=== PATIENT | male | born 1945 | race Caucasian/White ===

== ENCOUNTER 2024-09-19 14:38 | Emergency (ER) | payer OTHER, MEDICARE ==
[~2024-09-19] VITALS: Ht 188 cm; Wt 131.5 kg
[2024-09-19 14:40] VITALS: TEMP 98.2
--- NOTE | 2024-09-19 14:54 | ERN ---
ED Note History of Present Illness Stated Complaint: DIZZINESS Chief Complaint: Dizzy/Light Headed Time Seen by MD: 14:40 Dictation: PATIENT IS A 78-YEAR-OLD MALE COMING IN TODAY WITH COMPLAINTS OF BEING HYPOTENSIVE AND MILDLY DIZZY FOR THE LAST SEVERAL DAYS. HE HAS NO CHEST PAIN NO BACK PAIN NO HEADACHE, NIH IS 0 AND HE IS NEUROLOGICALLY INTACT WITH GAIT STEADY. 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 ESPINOSA PATIENT DOES STATE HE HAS HAD BLACK STOOLS FOR SEVERAL DAYS HOWEVER HE STATES HE TAKES IROMN REPLACEMENT TABLETS DAILY Allergies: Coded Allergies: No Known Drug Allergies (Unverified Allergy, Unknown, 09/19/24) Past Medical History RN Note Reviewed/Agreed w/PFSH: Yes Review of System Dictation CONSTITUTIONAL: NEGATIVE EXCEPT FOR HPI HEAD/FACE: NEGATIVE EXCEPT FOR HPI EENT: NEGATIVE EXCEPT FOR HPI RESPIRATORY: NEGATIVE EXCEPT FOR HPI GASTROINTESTINAL/ABDOMINAL: NEGATIVE EXCEPT FOR HPI GENITOURINARY: NEGATIVE EXCEPT FOR HPI MUSCULOSKELETAL: NEGATIVE EXCEPT FOR HPI INTEGUMENTARY: NEGATIVE EXCEPT FOR HPI NEUROLOGICAL/PSYCH: NEGATIVE EXCEPT FOR HPI DIZZY HEMATOLOGIC/LYMPHATIC: NEGATIVE EXCEPT FOR HPI ALL SYSTEMS NEGATIVE, EXCEPT NOTED ABOVE. 13 POINT REVIEW OF SYSTEMS ASSESSED AND ALL NEGATIVE EXCEPT FOR ABOVE. Initial Vital Sign VS Vital Signs Date Time Temp Pulse Resp B/P (MAP) Pulse Ox O2 Delivery O2 Flow Rate FiO2 09/19/24 14:40 98.2 75 16 119/52 97 Room Air* 0 21 Physical Exam Dictation VITAL SIGNS REVIEWED NIH IS 0, ALERT AND ORIENTED X4 SPEECH IS CLEAR NORMOTENSIVE GENERAL APPEARANCE: ALERT, ORIENTED X 3, NO ACUTE DISTRESS, WELL DEVELOPED, NOURISHED. HEAD AND FACE: NON-TRAUMATIC. EYES: PERRL, PINK CONJUNCTIVAS, EYELID NO TRAUMA, ANTERIOR CHAMBER WITH ARCUS SENILIS. EARS: PINNAS INTACT AND NO SIGNS OF TRAUMA OR ERYTHEMA EAR CANALS CLEAR AND NO DISCHARGE TM NO ERYTHEMA NOSE: NO DISCHARGE, NO BLEEDING. OROPHARYNX: MOUTH NORMAL, TONGUE PINK, PHARYNX CLEAR,NO ERYTHEMA, TONSILS NO EXUDATES, NO ABSCESSES NOTED, MUCOUS MEMBRANE MOIST NECK: SUPPLE, NON-TENDER, NO THYROMEGALY, NO MASSES, NO JVD, NO BRUITS BREAST:DEFERRED CHEST:NO TENDERNESS, NO CREPITUS, NO PARADOXICAL MOVEMENT, NO RETRACTIONS LUNGS:CLEAR, WELL-VENTILATED, SYMMETRIC, NO RALES, NO WHEEZING, NO RHONCHI, NO STRIDOR, GOOD BREATH SOUNDS BILATERALLY HEART: REGULAR RATE, REGULAR RHYTHM, NO MURMUR, NO GALLOPS VASCULAR: NO PERIPHERAL EDEMA, ABDOMEN: SOFT, POSITIVE BOWEL SOUNDS, NONDISTENDED, NO GUARDING, NONTENDER, NO REBOUND, NO MASSES NO HEPATOMEGALY, NO SPLENOMEGALY, NO GUTIERREZ'S SIGN, NO HERNIAS. RECTAL: DEFERRED GENITAL: DEFERRED NEUROLOGICAL: NORMAL SPEECH, MOTOR FUNCTION INTACT, SENSORY FUNCTION INTACT MUSCULOSKELETAL: NECK NONTENDER, FULL RANGE OF MOTION, BACK NONTENDER, FULL RANGE OF MOTION, EXTREMITIES: NONTENDER, FULL RANGE OF MOTION SKIN: COLOR PINK, DRY, NO TURGOR, NO RASH, NO LACERATIONS, NO ABRASIONS, NO CONTUSIONS. LYMPHATIC: DEFERRED Results (Laboratory/Radiology) Laboratory/Radiology Laboratory Tests Test 09/19/24 15:16 09/19/24 15:25 White Blood Count 10.3 K/uL (4.8-10.8) Red Blood Count 4.77 MIL/uL (4.50-6.20) Hemoglobin 13.3 g/dL (14.0-18.0) L Hematocrit 40.7 % (42-54) L Mean Corpuscular Volume 85.3 fL (79-99) Mean Corpuscular Hemoglobin 27.9 pg (27.0-33.0) Mean Corpuscular Hemoglobin Concent 32.7 g/dL (32.0-36.0) Red Cell Distribution Width 16.7 % (11.0-15.5) H Platelet Count 127 K/uL (130-400) L Mean Platelet Volume 12.0 fL (7.5-10.5) H Immature Granulocyte % (Auto) 1.9 % (0-1) H Neutrophils (%) (Auto) 68.5 % (40.0-77.0) Lymphocytes (%) (Auto) 17.1 % (21.0-51.0) L Monocytes (%) (Auto) 7.3 % (3.0-13.0) Eosinophils (%) (Auto) 3.6 % (0.0-8.0) Basophils (%) (Auto) 1.6 % (0.0-5.0) Neutrophils # (Auto) 7.0 K/uL (1.8-7.7) Lymphocytes # (Auto) 1.8 K/uL (1.0-4.8) Monocytes # (Auto) 0.8 K/uL (0.1-1.0) Eosinophils # (Auto) 0.37 K/uL (0.00-0.70) Basophils # (Auto) 0.16 K/uL (0.00-0.20) Absolute Immature Granulocyte (auto 0.19 K/uL (0-1) Nucleated Red Blood Cells 0.0 % (0.0-0.19) Sodium Level 137 mmol/L (136-145) Potassium Level 4.6 mmol/L (3.5-5.1) Chloride Level 102 mmol/L (101-111) Carbon Dioxide Level 29 mmol/L (21-32) Blood Urea Nitrogen 28 mg/dL (7-18) H Creatinine 1.0 mg/dL (0.5-1.3) Glomerular Filtration Rate Calc 77 mL/min (>90) Random Glucose 108 mg/dL (70-105) H Total Calcium 9.7 mg/dL (8.5-10.1) Magnesium Level 2.20 mg/dL (1.80-2.40) Troponin I High Sensitivity 6 ng/L (4-75) Stool Occult Blood POSITIVE (NEGATIVE) H Labs Reviewed?: Yes EKG Comment: EKG NORMAL SINUS RHYTHM/HEART RATE 73/AXIS NORMAL/NO ECTOPY ED Course ED Course Orders Procedure Category Date Status Time Orthostatic Vital CPOE 09/19/24 Transmitted Signs 14:45 Cbc With Differential LAB 09/19/24 Complete 14:45 Chest 1vw RAD 09/19/24 Resulted 14:45 12 Lead Ekg Tracing- EKG 09/19/24 Logged Technical 14:45 Magnesium LAB 09/19/24 Complete 14:45 Troponin I High LAB 09/19/24 Complete Sensitivity 14:45 Basic Metabolic Panel LAB 09/19/24 Complete 14:45 Occult Blood Stool LAB 09/19/24 Complete Single Only 14:56 Pantoprazole 40mg Inj PHA 09/19/24 Complete (Protonix 40mg Inj 17:00 Current Medications Medications (Trade) Dose Ordered Sig/Zeeshan Route PRN Reason Start Time Stop Time Status Last Admin Dose Admin Pantoprazole Sodium (PROTonix 40MG INJ) 40 mg ONCE ONCE IVP 09/19/24 17:00 12/22/24 17:01 DC Vital Signs Date Time Temp Pulse Resp B/P (MAP) Pulse Ox O2 Delivery O2 Flow Rate FiO2 09/19/24 14:40 98.2 75 16 119/52 09/19/24 14:40 98.2 75 16 119/52 97 Room Air* 0 21 1455, ORTHOSTATIC BLOOD PRESSURE CHECKS DONE BY TECH LYING 135/61 HEART RATE 73 SITTING BLOOD PRESSURE 133/54/HEART RATE 73 STANDING BLOOD PRESSURE 132/54 HEART RATE 88 1645/DR MALKA BRADY/GI REGARDING POSITIVE STOOL OB, HE SAID OKAY TO DISCHARGE PATIENT HOME AND HE TOOK HIS HOME PHONE NUMBER SAID HE WILL CALL PATIENT TOMORROW FOR AN APPOINTMENT. 1705 SPOKE WITH PATIENT AT LENGTH REGARDING FINDINGS AND MY CONVERSATION WITH ANNOUNCER HE IS AWARE THERE WAS NO SIGNIFICANT FINDINGS OTHER THAN A SCHOOL FOR AN OCCULT BLOOD AND THIS BLACK STOOL IS NOT RELATED TO IRON SUPPLEMENTATION. HE WANTS TO GO HOME AND SAID HE WILL FOLLOW UP WITH OF GASTROENTEROLOGY IN THE NEXT 1-2 DAYS. Medical Decision Making MDM MDM: DIFFERENTIAL DIAGNOSIS: ACS/AMI/ORTHOSTASIS/ELECTROLYTE IMBALANCE/DEHYDRATION/GI BLEED/ANEMIA RATIONALE: TESTS CONSIDERED AND ORDERED SECONDARY TO SHARED DECISION MAKING INCLUDE: LABS/EKG PREVIOUS OUTSIDE RECORDS REVIEWED: OLD ER VISITS. REVIEWED RISK OF COMPLICATION AND/OR MORBIDITY OR MORTALITY OF PATIENT MANAGEMENT: NONE MEDICATIONS-PER MEDICATION RECONCILIATION SEE NURSE'S NOTES NEED FOR HOSPITALIZATION: PATIENT DOES NOT MEET CRITERIA FOR HOSPITALIZATION. NO NEED FOR EMERGENCY MAJOR/MINOR SURGERY: NO THERE ARE NO SOCIAL CONCERNS WITH THIS PATIENT. PRESCRIPTION DRUG MANAGEMENT PROTONIX PRESCRIPTIONS WILL INCLUDE SYMPTOMATIC CARE PATIENT'S PRIOR EXTERNAL MEDICAL RECORDS FROM OTHER ER VISITS WERE REVIEWED BY ME INDICATED. PRIOR TESTING AND RESULTS FROM PREVIOUS VISITS WERE REVIEWED. PRIOR TESTS WERE TAKEN INTO ACCOUNT WITH MEDICAL DECISION MAKING AND RESOURCE UTILIZATION, INDEPENDENT HISTORIAN/HISTORIANS WERE USED TO OBTAIN COMPLETE MEDICAL HISTORY. I INDEPENDENTLY INTERPRETED THE TEST THAT WERE PERFORMED, RESULTS WERE REVIEWED BY ME AND CONSIDERED FINDINGS ON RADIOLOGY IF ORDERED. MEDICAL MANAGEMENT AND EXAMINATION INTERPRETATION DISCUSSIONS WERE HAD BY ME WITH OTHER QUALIFIED HEALTHCARE PROFESSIONALS INDICATED FOR THE PATIENT'S CARE. DX & DISP Disposition: Discharge Departure Impression: Primary Impression: Dizziness Additional Impressions: Positive occult stool blood test, Dehydration Condition: Stable Scripts Pantoprazole Sodium (Protonix) 40 Mg Tablet. 1 TAB PO DAILY for 30 Days, #30 TAB 0 Refills Prov: JUSTICE GAN FAST [employer]W LEAD 09/19/24 Additional Instructions: FOLLOW-UP WITH PRIMARY CARE PROVIDER IN 1 TO 2 DAYS. TAKE MEDICATIONS DIRECTED HERE IN THE EMERGENCY ROOM. OKAY TO CONTINUE HOME MEDICATIONS UNLESS OTHERWISE DISCUSSED DURING YOUR VISIT IN THE EMERGENCY ROOM TODAY. RETURN TO YOUR NEAREST EMERGENCY ROOM IF SYMPTOMS WORSEN OR IF THERE IS NO IMPROVEMENT. CALL 911 IF YOU NEED IMMEDIATE ASSISTANCE. TAKE TYLENOL OR MOTRIN DIDI-HDP-DQLAVGA NEEDED AND IF NO CONTRAINDICATIONS ARE PRESENT. INCREASE ORAL HYDRATION. A WOUND CULTURE OR URINE CULTURE WAS ORDERED HERE IN THE EMERGENCY ROOM DEPARTMENT PLEASE FOLLOW-UP WITH PRIMARY CARE PROVIDER AND ADVISE THEM TO GET REPEAT PORTS FROM OUR FACILITY. IF YOU HAD ANY SUDHEER WRAP/SPLINTS THAT WERE APPLIED HERE, PLEASE DO NOT REMOVE THEM UNTIL YOU SEE YOUR PRIMARY CARE OR SPECIALTY. TYLENOL ONLY FOR PAIN. FOLLOW UP WITH ANNOUNCER IN THE NEXT 1-2 DAYS AND TAKE PROTONIX DIRECTED. Referrals: NERY ACE MD Time of Disposition: 17:07 I have reviewed the case, and I agree with, Diagnosis and Plan JUSTICE GAN NP Sep 19, 2024 14:53
[2024-09-19 15:24] LABS: BASOPHILS # (AUTO) 0.16 K/uL (0.00-0.20); BASOPHILS % (AUTO) 1.6 % (0.0-5.0); EOSINOPHILS # (AUTO) 0.37 K/uL (0.00-0.70); EOSINOPHILS % (AUTO) 3.6 % (0.0-8.0); HEMATOCRIT 40.7 % (42-54); IMMATURE GRANULOCYTE ABSOLUTE 0.19 K/uL (0-1); LYMPHOCYTES # (AUTO) 1.8 K/uL (1.0-4.8); LYMPHOCYTES % (AUTO) 17.1 % (21.0-51.0); MEAN CORPUSCULAR HEMOGLOBIN 27.9 pg (27.0-33.0); MEAN CORPUSCULAR HGB CONC 32.7 g/dL (32.0-36.0); MEAN CORPUSCULAR VOLUME 85.3 fL (79-99); MONOCYTES # (AUTO) 0.8 K/uL (0.1-1.0); MONOCYTES % (AUTO) 7.3 % (3.0-13.0); NEUTROPHILS % (AUTO) 68.5 % (40.0-77.0); PLATELET COUNT (AUTO) 127 K/uL (130-400); RED BLOOD CELL COUNT(AUTO) 4.77 MIL/uL (4.50-6.20); RED CELL DISTRIBUTION WIDTH 16.7 % (11.0-15.5); WHITE BLOOD COUNT (AUTO) 10.3 K/uL (4.8-10.8)
[2024-09-19 15:33] LABS: MAGNESIUM 2.2 mg/dL (1.80-2.40); POTASSIUM 4.6 mmol/L (3.5-5.1)
--- NOTE | 2024-09-19 16:19 | HMCIMG ---
CHEST 1VW HISTORY: Chest pain COMPARISON: None FINDINGS: A frontal projection of the chest was obtained. No acute pulmonary infiltrates is seen. The heart is borderline enlarged. Degenerative changes are seen. Prominent interstitial markings are seen. IMPRESSION: 1. No acute pulmonary infiltrate is seen.
[2024-09-19] MEDS ORDERED: PANT40TA PO (17:09)
[2024-09-19] MEDS: PANTOPrazole 40 MG/VIAL IVP ONE (17:15)
[2024-09-19 17:26] VITALS: BP 122/68; PULSE 78; RESP 18; O2SAT 98
--- NOTE | 2024-09-20 05:26 | EKG ---
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
== END 2024-09-19 17:22 | disposition home or self-care (01) ==
LOC: EDH 14:38
DX: R42 Dizziness and giddiness (principal); E86.0 Dehydration
CPT/HCPCS: 99285; 96374; 71045; 82270; 83735; 84484; 80048; 85025; 36415; 93005; J2470